=== PATIENT | female | born 1950 | race American Indian/Alaskan Native ===

== ENCOUNTER 2016-12-04 15:51 | Emergency (ER) | payer OTHER ==
[2016-12-04 16:11] VITALS: BP 133/87; PULSE 116; TEMP 98.2; BMI 22.6
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
== END 2016-12-04 19:01 | disposition home or self-care (01) ==
LOC: JERFT 15:51
DX: S00.83XA Contusion of other part of head, initial encounter (principal); S05.12XA Contusion of eyeball and orbital tissues, left eye, initial encounter; S05.11XA Contusion of eyeball and orbital tissues, right eye, initial encounter; W51.XXXA Accidental striking against or bumped into by another person, initial encounter; Y93.89 Activity, other specified; Y92.89 Other specified places as the place of occurrence of the external cause; Y99.9 Unspecified external cause status; I10 Essential (primary) hypertension; E78.00 Pure hypercholesterolemia, unspecified
CPT/HCPCS: 70450-TC; 70486-TC; 99281-25

== ENCOUNTER 2017-03-03 08:45 | Emergency (ER) | payer OTHER ==
[2017-03-03 08:49] VITALS: BP 127/89; TEMP 97.7; BMI 20.9
--- NOTE | 2017-03-03 08:53 | PDOC ---
History of Present Illness <Gaetano Bee - Last Filed: 03/03/17 11:01> - General History Source: Patient, Family (Son) Exam Limitations: No Limitations - History of Present Illness Initial Comments: 03/03/17 09:08 The patient is a 66 year old female presenting with her son, with a significant past medical history of GERD, HTN and HLD, who presents to the emergency department with insomnia for the past 2 days, nausea abd vomiting since yesterday and a headache. She states that she has had insomnia in the past. She reports that she had a total of 2 vomiting episodes that were nonbloody and nonbilious in nature. She denies any recent travel or sick contacts. She describes her headache as a burning sensation. She states that she feels tired and reports dizziness associated with her chief complaints, which is mild in intensity, exacerbated when she sits up. The patient denies chest pain and shortness of breath. Denies fever, chills, diarrhea and constipation. Denies dysuria, frequency, urgency and hematuria. Allergies:None Past surgical history: None reported Social history: No alcohol, tobacco or drug use reported <Solitario Burgos - Last Filed: 03/03/17 11:27> - General Chief Complaint: Nausea/Vomiting Stated Complaint: SLEEPING PROBLEMS/FEVER Time Seen by Provider: 03/03/17 08:53 Past History - Past Medical History GI Disorders: Yes (gerd) HTN: Yes Hypercholesterolemia: Yes - Psycho/Social/Smoking Cessation Hx Anxiety: No Suicidal Ideation: No Smoking History: Never smoked Hx Alcohol Use: No Drug/Substance Use Hx: No Substance Use Type: None <Gaetano Bee - Last Filed: 03/03/17 11:01> <Solitario Burgos - Last Filed: 03/03/17 11:27> - Past Medical History Allergies/Adverse Reactions: Allergies Allergy/AdvReac Type Severity Reaction Status Date / Time No Known Allergies Allergy Verified 03/03/17 08:47 Home Medications: Ambulatory Orders Nitrofurantoin Monohyd/M-Cryst [Macrobid -] 100 mg PO BID #14 capsule 03/03/17 Review of Systems - Review of Systems Constitutional: No: Chills, Fever Respiratory: No: Cough, Shortness of Breath Cardiac (ROS): Yes: Lightheadedness. No: Chest Pain, Syncope ABD/GI: Yes: Nausea, Vomiting. No: Blood Streaked Bowels, Diarrhea : No: Dysuria, Frequency All Other Systems: Reviewed and Negative <Gaetano Bee - Last Filed: 03/03/17 11:01> *Physical Exam - Vital Signs Last Vital Signs Temp Pulse Resp BP Pulse Ox 97.7 F 111 H 18 127/89 97 03/03/17 08:46 03/03/17 08:46 03/03/17 08:46 03/03/17 08:46 03/03/17 08:46 <Gaetano Bee - Last Filed: 03/03/17 11:01> - Vital Signs Last Vital Signs Temp Pulse Resp BP Pulse Ox 97.7 F 111 H 18 127/89 97 03/03/17 08:46 03/03/17 08:46 03/03/17 08:46 03/03/17 08:46 03/03/17 08:46 - Physical Exam Comments: 03/03/17 09:08 GENERAL: The patient is awake, alert, and fully oriented, in no acute distress. HEAD: Normal with no signs of trauma. EYES: Pupils equal, round and reactive to light, extraocular movements intact, sclera anicteric, conjunctiva clear with no pallor. ENT: Ears normal, nares patent, oropharynx clear without exudates. Slightly dry mucosa. NECK: Normal range of motion, supple without lymphadenopathy, JVD, or masses. LUNGS: Breath sounds equal, clear to auscultation bilaterally. No wheeze/ crackles. HEART: Regular rate and rhythm, normal S1 and S2 without murmur or rub. ABDOMEN: Soft/nontender/nondistended. BS wnl. No guarding or rebound. No palpable masses. No hepatosplenomegaly. EXTREMITIES: Normal range of motion, no edema. No clubbing or cyanosis. No cords , erythema, or tenderness. NEUROLOGICAL: Cranial nerves II through XII grossly intact. Normal speech, normal gait. PSYCH: Normal mood, normal affect. SKIN: Warm, Dry, normal turgor, no rashes or lesions noted. <Solitario Burgos - Last Filed: 03/03/17 11:27> Heart Score/ECG Review #1 ECG reviewed & interpreted by me at: 10:10 General ECG Interpretation: Sinus Rhythm, Normal Rate (91), Normal Intervals ( qtc 450), No acute ischemic changes (isolated Q in III) <Gaetano Bee - Last Filed: 03/03/17 11:01> ED Treatment Course - LABORATORY CBC & Chemistry Diagram: 03/03/17 09:30 03/03/17 09:30 <Gaetano Bee - Last Filed: 03/03/17 11:01> - LABORATORY CBC & Chemistry Diagram: 03/03/17 09:30 03/03/17 09:30 - RADIOLOGY Radiograph Interpretation: 03/03/17 11:[address] Reviewed by; Dr. Shimon Lindsey Impression: No CT evidence of acute intracranial pathology. <Solitario Burgos - Last Filed: 03/03/17 11:27> Medical Decision Making - Medical Decision Making 03/03/17 09:26 A portion of this note was documented by scribe services under my direction. I have reviewed the details of the note, within reason, and agree with the documentation with the following case summary and management plan written by me. 66-year-old female with history of hypertension and chronic sleep disorder presents with nausea/vomiting since last night, and now lightheadedness particularly with standing. Nonbloody nonbilious emesis without associated abdominal pain or chest pain or diarrhea/constipation, vomited about 2 times last night, since then has been experiencing lightheadedness so she presents for evaluation. Denies vertigo, reports a head fullness but no headache, no other visual/speech/motor/sensory deficit. No history of recurring GI illness. Vital signs normal. Generally well-appearing, dry mucosa Neurologically intact throughout Abdomen is benign 66-year-old female with likely dehydration following gastritis/vomiting syndrome. Given age, ACS and COMMUNITY LIAISON etiology is in the differential, but she has no cardiopulmonary complaints and no other neurological complaints. Her dizziness is more consistent with orthostatic lightheadedness, her neurological exam is normal. Check labs, urinalysis EKG, head CT IV fluids, antiemetics Reassess 03/03/17 10:13 White count 5.8 with slight lymphocyte predominance, mild dehydration with low sodium and chloride, elevated glucose but normal AG, normal creatinine. Troponin negative, lipase normal, urinalysis with early evidence of UTI with 1+ leuk esterase and 5 white blood cells. Will obtain urine culture, start abx empirically. CT pending, will dispo accordingly. 03/03/17 11:01 CT normal. Patient feels markedly improved, sitting up and standing without lightheadedness , remains neurologically intact. HR 76 Discussed elevated glucose and mild UTI. Will discharge with antibiotics and PMD follow-up for assessment of whether meds are now indicated, she has been monitored for borderline DM to date. Son at bedside, both agree with plan and understand return criteria. <Gaetano Bee - Last Filed: 03/03/17 11:01> *DC/Admit/Observation/Transfer <Gaetano Bee - Last Filed: 03/03/17 11:01> - Attestations Scribe Attestion: 03/03/17 09:09 Documentation prepared by Solitario Burgos, acting as medical billing representative for Gaetano Bee MD <Solitario Burgos - Last Filed: 03/03/17 11:27> Diagnosis at time of Disposition: Lightheaded Nausea and vomiting Qualifiers: Vomiting type: unspecified Vomiting Intractability: non-intractable Qualified Code(s): R11.2 - Nausea with vomiting, unspecified - Discharge Dispostion Disposition: HOME Condition at time of disposition: Improved - Prescriptions Prescriptions: Nitrofurantoin Monohyd/M-Cryst [Macrobid -] 100 mg PO BID #14 capsule - Patient Instructions Printed Discharge Instructions: DI for Vomiting -- Adult, DI for Urinary Tract Infection (UTI), DI for Hyperglycemia -- Adult Additional Instructions: Activity as tolerated. Stay well hydrated. Blood tests performed today showed an elevated sugar but no other complications. Speak to your primary doctor about whether you need to start diabetes medications. A urine test shows an early infection. Take macrobid as antibiotic as prescribed. A CT of the head showed no acute abnormalities. Continue your medications as previously prescribed by your physician. You should follow up with your primary doctor as soon as possible regarding today's emergency department visit. Return to the emergency department for any new or concerning symptoms, particularly persistent vomiting or dehydration, fevers or difficulty urinating , confusion or generalized weakness.
[2017-03-03] MEDS ORDERED: SODIUM CHLORIDE 1,000 ML IV ONE (09:24)
[2017-03-03] MEDS ORDERED: FAMOTIDINE 20 MG/50 ML IVPB 50 ML IVPB ONE ×2 (09:24→09:33)
[2017-03-03] MEDS ORDERED: ONDANSETRON 4 MG/2 ML VIAL IVPB ONE (09:24)
[2017-03-03] MEDS ORDERED: ONDANSETRON 4 MG/2 ML VIAL ONE (09:33)
[2017-03-03 09:36] LABS: BASOPHIL 0.8 % (0-2.0); EOSINOPHIL 0.9 % (0-4.5); MCH 28.4 pg (25.7-33.7); MCHC 33.7 g/dl (32.0-36.0); MEAN CELL VOLUME 84.4 fl (80-96); MEAN PLT VOLUME 9.9 fl (7.5-11.1); NEUTROPHILS 43.8 % (42.8-82.8); PLATELET COUNT 203 K/MM3 (134-434); RDW 13.6 % (11.6-15.6); WHITE BLOOD COUNT 8.8 K/mm3 (4.0-10.0)
[2017-03-03 09:48] LABS: URINE APPEARANCE CLEAR; URINE BILIRUBIN NEGATIVE (NEGATIVE); URINE BLOOD NEGATIVE (NEGATIVE); URINE COLOR LTYELLOW; URINE GLUCOSE (UA) 3+ (NEGATIVE); URINE KETONE TRACE (NEGATIVE); URINE LEUK ESTERASE 1+ (NEGATIVE); URINE NITRITE NEGATIVE (NEGATIVE); URINE PROTEIN NEGATIVE (NEGATIVE); URINE UROBILINOGEN NEGATIVE E.U./dl (0.2-1.0)
[2017-03-03 09:49] LABS: URINE BACTERIA FEW /hpf (NONE SEEN); URINE MUCUS RARE; URINE RBC <1 /hpf (0-3); URINE WBC 5 /hpf (3-5)
[2017-03-03 10:02] LABS: ALBUMIN 4.2 g/dl (3.4-5.0); ALK PHOS 86 U/L (45-117); ANION GAP 8 (8-16); BILIRUBIN,TOTAL 0.6 mg/dL (0.2-1.0); CO2 33 mmol/L (21-32); CREATININE 0.9 mg/dL (0.55-1.02); SGOT/AST 32 U/L (15-37); SGPT/ALT 38 U/L (12-78); TOT PROT 7.8 g/dl (6.4-8.2)
[2017-03-03 10:03] LABS: TROPONIN I < 0.02 ng/ml (0.00-0.05)
[2017-03-03 10:21] LABS: GLUCOSE,RANDOM 307 mg/dL (74-106)
[2017-03-03 11:36] VITALS: PULSE 82
--- NOTE | 2017-03-05 00:12 | EKG ---
Test Reason : Blood Pressure : / mmHG Vent. Rate : 091 BPM Atrial Rate : 091 BPM P-R Int : 182 ms QRS Dur : 086 ms QT Int : 366 ms P-R-T Axes : 051 021 026 degrees QTc Int : 450 ms NORMAL SINUS RHYTHM CANNOT RULE OUT ANTERIOR INFARCT , AGE UNDETERMINED ABNORMAL ECG NO PREVIOUS ECGS AVAILABLE Confirmed by EDUARDO ADAM MD ([id number]) on 03/05/2017 12:12:14 AM Referred By: Confirmed By:EDUARDO ADAM MD
== END 2017-03-03 11:35 | disposition home or self-care (01) ==
LOC: JER 08:45
PROC: 3E033GC Introduction of Other Therapeutic Substance into Peripheral Vein, Percutaneous Approach (ICD-10-PCS; principal; 2017-03-03)
DX: N39.0 Urinary tract infection, site not specified (principal); R11.2 Nausea with vomiting, unspecified; R73.9 Hyperglycemia, unspecified; K21.9 Gastro-esophageal reflux disease without esophagitis; I10 Essential (primary) hypertension; E78.00 Pure hypercholesterolemia, unspecified
CPT/HCPCS: 36415; 70450-TC; 80053; 81003; 81015; 82550; 83690; 83735; 84484; 85025; 87086; 93005; 93010; 96365; 96375; 99285-25

== ENCOUNTER 2019-07-22 19:05 | Emergency (ER) | payer OTHER ==
--- NOTE | 2019-07-22 19:13 | PDOC ---
Rapid Medical Evaluation Medical Evaluation: Allergies Allergy/AdvReac Type Severity Reaction Status Date / Time No Known Allergies Allergy Verified 03/03/17 08:47 I have performed a brief in-person evaluation of this patient. The patient presents with a chief complaint of: c/o itchy rash along R ear, face , L AC from 2 days ago after gardening; denies ear pain Pertinent physical exam findings: R ear swollen/ear, erythematous rash along L AC region and also along face I have ordered the following: ?poison jina; nothing ordered The patient will proceed to the ED for further evaluation. 07/22/19 19:10
[2019-07-22 19:15] VITALS: BP 111/71; PULSE 95; TEMP 98.1; BMI 20.1
--- NOTE | 2019-07-22 20:07 | PDOC ---
History of Present Illness - General Chief Complaint: Rash Stated Complaint: ALLERGIC REACTION Time Seen by Provider: 07/22/19 19:10 - History of Present Illness Initial Comments: 07/22/19 20:02 68 y/o F with PMH of HTN, NIDDM, Dyslipidemia presents for evaluation of rash x2 days without systemic symptoms. Past History - Past Medical History Allergies/Adverse Reactions: Allergies Allergy/AdvReac Type Severity Reaction Status Date / Time No Known Allergies Allergy Verified 07/22/19 19:15 Home Medications: Ambulatory Orders Nitrofurantoin Monohyd/M-Cryst [Macrobid -] 100 mg PO BID #14 capsule 03/03/17 Methylprednisolone [Medrol Dose Ahmet] 4 mg PO ASDIR #21 tablet 07/22/19 COPD: No Diabetes: Yes GI Disorders: Yes (gerd) HTN: Yes Hypercholesterolemia: Yes - Immunization History Immunization Up to Date: Yes - Suicide/Smoking/Psychosocial Hx Smoking History: Never smoked Have you smoked in the past 12 months: No Information on smoking cessation initiated: No Hx Alcohol Use: No Drug/Substance Use Hx: No Substance Use Type: None Review of Systems - Review of Systems Constitutional: No: Chills, Fever, Night Sweats Respiratory: No: Cough, Wheezing Integumentary: Yes: Pruritus, Rash *Physical Exam - Vital Signs Last Vital Signs Temp Pulse Resp BP Pulse Ox 98.1 F 95 H 17 111/71 97 07/22/19 19:11 07/22/19 19:11 07/22/19 19:11 07/22/19 19:11 07/22/19 19:11 - Physical Exam General Appearance: Yes: Nourished, Appropriately Dressed. No: Apparent Distress HEENT: positive: EOMI, Normal ENT Inspection, Normal Voice, Symmetrical, TMs Normal, Pharynx Normal, Other (Right shea is erythemic and swollwen; canal is normal ) Respiratory/Chest: positive: Chest Tender, Lungs Clear, Normal Breath Sounds. negative: Respiratory Distress, Accessory Muscle Use Rectal Exam: positive: normal exam Musculoskeletal: positive: Normal Inspection Extremity: positive: Normal Inspection, Normal Range of Motion Integumentary: positive: Hives, Other (Anterior aspect of L arm ) Neurologic: positive: contact agent II-XII NML intact Medical Decision Making - Medical Decision Making 07/22/19 20:04 This appears to be an allergic reaction of unknown etiology; discussed the use of steroids in the presence of DM pt understands to check BS and return to the RE if >300 *DC/Admit/Observation/Transfer Diagnosis at time of Disposition: Contact dermatitis - Discharge Dispostion Disposition: HOME Condition at time of disposition: Stable Decision to Admit order: No - Prescriptions Prescriptions: Methylprednisolone [Medrol Dose Ahmet] 4 mg PO ASDIR #21 tablet - Referrals Referrals: Thais Hoover MD [Primary Care Provider] - - Patient Instructions Additional Instructions: Return to the Emergency room for worsening symptoms and for any blood sugar > 300. You are being placed on a steroid pack and this may raise your sugar. Please, without fail, follow up with your primary care physician in 1-2 days for further evaluation and treatment options. Please take the steroid pack as directed. You may also take Benadryl as directed for itching. - Post Discharge Activity
== END 2019-07-22 20:19 | disposition home or self-care (01) ==
LOC: JERFT 19:05
DX: L23.9 Allergic contact dermatitis, unspecified cause (principal); I10 Essential (primary) hypertension; E78.5 Hyperlipidemia, unspecified; E11.9 Type 2 diabetes mellitus without complications; Z79.84 Long term (current) use of oral hypoglycemic drugs; K21.9 Gastro-esophageal reflux disease without esophagitis
CPT/HCPCS: 99281-25